=== PATIENT | male | born 1960 | race Caucasian/White ===

== ENCOUNTER → 2018-07-11 10:27 | Outpatient (CLI) | payer MEDICARE, SELFPAY ==
--- NOTE | 2018-07-11 10:39 | RAD_ITS ---
STUDY: X-RAY - CERVICAL SPINE REASON FOR EXAM: Male, 58 years old. Neck and arm pain TECHNIQUE: 6 view(s) of the cervical spine were obtained. COMPARISON: None FINDINGS: Normal anterior atlantoaxial articulation. Normal odontoid process. There is straightening of the normal cervical lordosis. There is multi-level endplate spondylosis. There is multi-level degenerative disc disease with multilevel disc space narrowing. There is multi-level osseous foraminal stenosis. The soft tissue structures are unremarkable. RAD/Cerv Spine 4 or 5 Views IMPRESSION: Multilevel degenerative changes Electronically Signed: Ramon Tavares MD at 14:51 EDT , Service support ,
== END ==
PROVIDERS: Referring Provider Nurse Practitioner Family; Visit Provider Nurse Practitioner Family
DX: M54.2 Cervicalgia (principal)
CPT/HCPCS: 72050

== ENCOUNTER → 2018-12-03 12:41 | Outpatient (CLI) | payer MEDICARE, SELFPAY | PROVIDERS: Referring Provider Nurse Practitioner Adult Health; Visit Provider Nurse Practitioner Adult Health | DX: Z12.5 Encounter for screening for malignant neoplasm of prostate (principal) | CPT/HCPCS: 36415; 84153; G0103 ==

== ENCOUNTER 2021-10-15 18:18 | Emergency (ER) | payer MEDICARE, SELFPAY ==
[2021-10-15 18:20] VITALS: BP 259/121; PULSE 73; RESP 14; TEMP 35.7; O2SAT 97; BMI 43.1
--- NOTE | 2021-10-15 19:12 | EDS_ITS ---
HPI History of Present Illness Chief Complaint: Laceration Informant: patient Narrative Narrative: Patient presents with a laceration to his left nondominant hand. He reached in the garbage and cut it on a fresh [place] open tuna can. Last tetanus is unknown. He is not on any blood thinners. Putting pressure on it stopped any bleeding. He has no numbness tingling or weakness. No other injury. Of note, the patient states he was very nervous when he got here he thinks this is contributing to his blood pressure being up. However, he is on multiple meds for blood pressure. He just took these shortly before coming here. He has no chest pain vision changes shortness of breath or other symptoms. [facility] Medical History Diabetes High blood pressure Home Medications amlodipine-benazepril 10 - 40 cap PO DAILY 10/15/21 [History Last Taken Unknown] citalopram 40 mg PO DAILY 10/15/21 [History Last Taken Unknown] dicyclomine 20 mg PO DAILY 10/15/21 [History Last Taken Unknown] metformin 500 mg PO DAILY 10/15/21 [History Last Taken Unknown] omeprazole 40 mg PO DAILY 10/15/21 [History Last Taken Unknown] propranolol 80 mg PO DAILY 10/15/21 [History Last Taken Unknown] simvastatin 20 mg PO DAILY 10/15/21 [History Last Taken Unknown] Allergy/AdvReac Type Severity Reaction Status Date / Time No Known Allergies Allergy Verified 10/15/21 18:20 Social History Smoking Status: Current every day smoker tobacco type: cigarettes ROS ROS ED Constitutional Constitutional ED: Denies fever(s) or subjective Eyes Eyes: Denies blurry vision or change in vision Cardiovascular Cardiovascular: Denies chest pain or palpitations Respiratory/Chest Respiratory/Chest: Denies cough or dyspnea Gastrointestinal Gastrointestinal: Denies nausea or vomiting Integumentary Reports other Details: Laceration left hand Neurologic Neurologic: Denies paresthesias or weakness Hematologic/Lymphatic Hematologic/Lymphatic: Denies easy bleeding or easy bruising EXAM Physical Exam Const Vital Signs: 10/15/21 18:20 Temperature 96.3 F L Temperature Source Temporal Pulse Rate 73 Respiratory Rate 14 Blood Pressure 259/121 H Blood Pressure Mean 167 Pulse Ox 97 Oxygen Delivery Method Room Air Positive well nourished and well developed General Appearance ED: well developed and NAD HEENT atraumatic; Negative for trauma Eyes PERRL and EOMs intact bilaterally Chest Wall inspection of chest normal Resp normal respiratory effort and clear to auscultation bilaterally Auscultation: Negative for rales, rhonchi or wheezes Cardio regular rhythm and no murmurs Rate: regular rate GI normal to inspection, nondistended, normoactive bowel sounds and non-tender Palpation: soft Neuro no focal motor deficits and no sensory deficits noted Sensorium / Orientation: alert; Negative for lethargic or stuporous Psych mental status grossly normal Skin Skin Narrative: Patient has a 2 cm laceration on the lateral aspect of the left thenar eminence. No active bleeding. No distal numbness tingling or weakness. Tendon function is completely normal. Capillary refill is normal. PROC Procedures Lacerations Left hand laceration-see MDM: Depth: Skin Shape: Flap Prep: Sterile Conditions and Shure-Clens Laceration repair: Irrigated, Lidocaine and Local Irrigated (ml): 250 Number of Sutures/Bhavin: 4 Suture Information: Ethilon, Simple and 4-0 [facility] MDM MDM Narrative Medical decision making narrative: Procedure: Suture laceration: Area around the wound was sterilely prepped and draped. It was cleansed. It was anesthetized with 3 cc of 1% plain lidocaine locally. He tolerated this well and good anesthesia was achieved. He was then more copiously irrigated. There was a flap that was lifted up and we cleaned under this. There is no visible tendon or other structures. It was sutured with four 4-0 Ethilon sutures with good cosmesis and hemostasis. He tolerated this well. Sutures out in about 10-14 days. Return with redness drainage fevers pain swelling or other concerns. Discharge Plan Triage Chief Complaint: Laceration ED Provider: Jason Ray Dx/Rx/DC Orders Clinical Impression: Laceration of hand, left, Sutured skin wound Instructions: ED Laceration, Hand: All Closures Prescriptions: No Action metformin 500 mg tablet 500 mg PO DAILY RF: 0 propranolol 80 mg tablet 80 mg PO DAILY RF: 0 citalopram 40 mg tablet 40 mg PO DAILY RF: 0 omeprazole 40 mg capsule,delayed release(DR/EC) 40 mg PO DAILY RF: 0 dicyclomine 20 mg tablet 20 mg PO DAILY RF: 0 simvastatin 20 mg tablet 20 mg PO DAILY RF: 0 amlodipine-benazepril 10-40 mg capsule 10 - 40 cap PO DAILY RF: 0 Primary Care Provider: Care Physician,No Primary Referrals: Care Physician,No Primary [Primary Care Provider] - Activity Restrictions/Additional Instructions: Follow-up with your physician or return here in 10-14 days for suture removal. Disposition Disposition: Home, Self Care
[2021-10-15 19:16] VITALS: BP 171/94
[2021-10-15] MEDS: Diphth,Pertuss(Acell),Tet Vac 0.5 ML Vial IM (19:25)
[2021-10-15] MEDS: Lidocaine 1% (20 ml mdv) 20 ML Vial INFILT (19:53)
== END 2021-10-15 19:55 | disposition home or self-care (01) ==
LOC: ED 19:36
PROVIDERS: Emergency Provider Emergency Medicine; Visit Provider Emergency Medicine
DX: S61.412A Laceration without foreign body of left hand, initial encounter (principal); E11.9 Type 2 diabetes mellitus without complications; F17.210 Nicotine dependence, cigarettes, uncomplicated; Z79.84 Long term (current) use of oral hypoglycemic drugs; W26.8XXA Contact with other sharp object(s), not elsewhere classified, initial encounter; Y93.9 Activity, unspecified; Y92.9 Unspecified place or not applicable
CPT/HCPCS: 12001; 90471; 90715; 99283